=== PATIENT | male | born 1995 | race American Indian/Alaskan Native ===

== ENCOUNTER 2017-09-07 08:03 | Emergency (ER) | payer OTHER ==
[2017-09-07 08:06] VITALS: BP 131/79
[2017-09-07] MEDS ORDERED: DELTASONE PO ONE (08:47)
[2017-09-07] MEDS ORDERED: PROVENTIL IH ONE (08:47)
--- NOTE | 2017-09-07 09:01 | Emergency Department Report ---
ED Asthma HPI - General Chief Complaint: Adult Asthma Stated Complaint: ASTHMA Time Seen by Provider: 09/07/17 08:46 Source: patient Mode of arrival: Ambulatory Limitations: No Limitations - History of Present Illness Initial Comments: A 22-year-old -[place] male history of asthma and all asthma medications who presents for shortness of breath continuous for the last 3 days states shortness of breath on exposure to environmental with nocturnal wheezing no fever or chills states known trigger to pollen impression refill of medications including Breo has reveals pending a pharmacy thyroid has insufficient Significant Medications question cheaper options and neb treatments today again denies fevers chills no nausea vomiting no chest pain rights asthma symptoms as 05/24 MD Complaint: shortness of breath, wheezing Onset/Timin -: hour(s) Asthma History: childhood onset Severity: moderate Context: medication non-compliance Associated Symptoms: dry cough - Related Data Current Asthma Therapy: inhaled bronchodilator, inhaled steroid Previous Rx's Medication Instructions Recorded Last Taken Type Fluticasone [Flonase] 1 spray NS QDAY #1 bottle 01/15/15 Unknown Rx ALBUTEROL Inhaler [ProAir HFA 2 puff IH QID PRN #1 inhalation 03/05/15 Unknown Rx Inhaler] Azithromycin [Zithromax Z-JENNA] 250 mg PO DAILY #6 tab 03/05/15 Unknown Rx methylPREDNISolone [Medrol Dose 4 mg PO QAM #1 pack 03/05/15 Unknown Rx Jenna] ALBUTEROL NEB's [Proventil 0.083% 2.5 mg IH QID PRN #25 ampul 09/07/17 Unknown Rx NEBS] Azithromycin [Zithromax Z-JENNA] 0 mg PO DAILY #6 tab 09/07/17 Unknown Rx Montelukast Sodium [Singulair] 4 mg PO DAILY #30 tab.chew 09/07/17 Unknown Rx predniSONE [Deltasone] 40 mg PO QDAY #10 tab 09/07/17 Unknown Rx Allergies Allergy/AdvReac Type Severity Reaction Status Date / Time No Known Allergies Allergy Verified 09/07/17 08:04 ED Review of Systems ROS: Stated complaint: ASTHMA Other details as noted in HPI Constitutional: other (sob) Eyes: denies: eye pain, eye discharge, vision change ENT: denies: ear pain, throat pain Respiratory: cough, shortness of breath, SOB with exertion, wheezing Cardiovascular: denies: chest pain, palpitations Endocrine: no symptoms reported Gastrointestinal: denies: abdominal pain, nausea, diarrhea Genitourinary: denies: urgency, dysuria Musculoskeletal: denies: back pain, joint swelling, arthralgia Skin: denies: rash, lesions Neurological: denies: headache, weakness, paresthesias Psychiatric: denies: anxiety, depression Hematological/Lymphatic: denies: easy bleeding, easy bruising ED Past Medical Hx - Past Medical History Hx Asthma: Yes - Social History Smoking Status: Never Smoker Substance Use Type: None - Medications Home Medications: Home Medications Medication Instructions Recorded Confirmed Last Taken Type Fluticasone [Flonase] 1 spray NS QDAY #1 bottle 01/15/15 Unknown Rx ALBUTEROL Inhaler [ProAir HFA 2 puff IH QID PRN #1 inhalation 03/05/15 Unknown Rx Inhaler] Azithromycin [Zithromax Z-JENNA] 250 mg PO DAILY #6 tab 03/05/15 Unknown Rx methylPREDNISolone [Medrol Dose 4 mg PO QAM #1 pack 03/05/15 Unknown Rx Jenna] ALBUTEROL NEB's [Proventil 0.083% 2.5 mg IH QID PRN #25 ampul 09/07/17 Unknown Rx NEBS] Azithromycin [Zithromax Z-JENNA] 0 mg PO DAILY #6 tab 09/07/17 Unknown Rx Montelukast Sodium [Singulair] 4 mg PO DAILY #30 tab.chew 09/07/17 Unknown Rx predniSONE [Deltasone] 40 mg PO QDAY #10 tab 09/07/17 Unknown Rx ED Physical Exam - General Limitations: No Limitations General appearance: alert, in no apparent distress - Head Head exam: Present: atraumatic, normocephalic - Eye Eye exam: Present: normal appearance - ENT ENT exam: Present: mucous membranes moist - Neck Neck exam: Present: normal inspection, full ROM. Absent: lymphadenopathy, thyromegaly - Respiratory Respiratory exam: Present: wheezes, decreased breath sounds, prolonged expiratory. Absent: stridor, chest wall tenderness - Cardiovascular Cardiovascular Exam: Present: regular rate, normal rhythm, normal heart sounds. Absent: systolic murmur, diastolic murmur, rubs, gallop - GI/Abdominal GI/Abdominal exam: Present: soft, normal bowel sounds. Absent: distended, tenderness - Rectal Rectal exam: Present: deferred - Extremities Exam Extremities exam: Present: normal inspection - Back Exam Back exam: Present: normal inspection - Neurological Exam Neurological exam: Present: alert, oriented X3, normal gait - Psychiatric Psychiatric exam: Present: normal affect, normal mood - Skin Skin exam: Present: warm, dry, intact, normal color. Absent: rash ED Course Vital Signs 09/07/17 08:04 Temperature 98.4 F Pulse Rate 83 Respiratory 20 Rate Blood Pressure 131/79 O2 Sat by Pulse 97 Oximetry ED Medical Decision Making - Radiology Data Radiology results: report reviewed, image reviewed no infiltrates no opacitities - Medical Decision Making Breathing improved patient states breathing to baseline patient ambulated from room 35 around ADM back to room without increase in wheezing or shortness of breath O2 sat now 96% on room air no wheezing plan refill albuterol nebulizers and prednisone by mouth 5 days Z-Jenna five-day refill Singular. follow PCP in 3- 5 days return to ED if symptoms worsen patient verbalizes understanding and agreement with discharge plan be DC'd home in stable condition at this time. Critical care attestation.: If time is entered above; I have spent that time in minutes in the direct care of this critically ill patient, excluding procedure time. ED Disposition Clinical Impression: Bronchitis Asthma Qualifiers: Asthma severity: moderate Asthma persistence: unspecified Asthma complication type: unspecified Qualified Code(s): J45.909 - Unspecified asthma, uncomplicated Disposition: DC-01 TO HOME OR SELFCARE Is pt being admited?: No Does the pt Need Aspirin: No Condition: Good Instructions: Asthma (ED), Chronic Bronchitis (ED) Prescriptions: ALBUTEROL NEB's [Proventil 0.083% NEBS] 2.5 mg IH QID PRN #25 ampul PRN Reason: sob wheezing Azithromycin [Zithromax Z-JENNA] 0 mg PO DAILY #6 tab Montelukast Sodium [Singulair] 4 mg PO DAILY #30 tab.chew predniSONE [Deltasone] 40 mg PO QDAY #10 tab Referrals: PRIMARY CARE, [Primary Care Provider] - 3-5 Days Forms: Work/School Release Form(ED) Time of Disposition: 10:22
--- NOTE | 2017-09-07 09:13 | XRay Report ---
CHEST 2 VIEWS INDICATION: Shortness of breath, asthma. COMPARISON: 03/05/2015. FINDINGS: PA and lateral chest radiographs demonstrate normal cardiomediastinal silhouette. Slight peribronchial thickening centrally. Otherwise unremarkable lungs. Intact bones. CONCLUSION: Slight peribronchial thickening centrally without evidence of pneumonia. Please correlate. Thank you for the opportunity to participate in this patient's care.
== END 2017-09-07 10:29 | disposition home or self-care (01) ==
LOC: ED 08:03
DX: J45.909 Unspecified asthma, uncomplicated (principal)
CPT/HCPCS: 71046; 94640; 99283; J7512